=== PATIENT | female | born 1975 | race Caucasian/White ===

== ENCOUNTER → 2017-02-18 | Outpatient (CLI) | payer OTHER, BC ==
[~2017-02-18] MED LIST: ASPIRIN81 M2; BAYER CHEWABLE81 MG; CELEBREX; CIPRO PO; CLINORIL; DIFLUCAN PO; ESTRADIOL; ESTRADIOL0.5 MG; FLAGYL PO; IBUPROFEN800 MG PO; LINZESS290 MCG; METOPROLOL SUC100 MG; METOPROLOL SUCC25 MG PO; NEXIUM; PHENERGAN25 M1 PO; SENOKOT60 ML; VITAL-D RX TABL1 TAB; VITAMIN D2000 UNIT; ZINC10 M1; ZOFRAN; ZYRTEC; ZYRTEC10 M3
--- NOTE | ~2017-02-18 | CT57 ---
[facility] A Service of [facility] & [facility] RADIOLOGY TEXT RESULTS PATIENT: MUNDO WINTERS LOCATION: [facility] : 79 UNIT #: [id number] AGE: [address]: Cecile Peters APRN SEX: F ORDER DR: [id number] [address] [address] [id number] O MR#: [id number] Acc #: [id number] NAME: MUNDO WINTERS : 1975 SEX: F STUDY DATE/TIME: 02/18/2017 9:01 UNIT: [facility] ROOM: STUDY DESCRIPTION: CT Chest Wo Cont Attending Physician: Cecile Peters A.P.R.N. Referring Physician: Cecile Peters A.P.R.N. Ordering Physician: Cecile Peters A.P.R.N. Primary Care Physician: Cecile Peters A.P.R.N. MEDICAL IMAGING REPORT This report is preliminary unless electronic signature is present. EXAM CT chest without contrast DATE OF EXAMINATION 02/18/2017 HISTORY 41-year-old female with difficulty breathing. "Pulling" pain under the right arm. Shortness of breath occurs without or with exertion for the past 3 months. Treated for bronchitis but is no better. Additional history of reflux, epigastric bloating and belching for 3 months. Lupus. Irritable bowel syndrome. Diverticulosis. COMPARISON CTA chest PE protocol 02/11/2017. PROCEDURE 5 mm noncontrast axial images through the chest. Sagittal and coronal reformatted images were obtained. This CT exam was performed with one or more of the following radiation dose reduction techniques: automatic exposure control, adjustment of mA and/or kV according to patient size, and iterative reconstruction. FINDINGS No acute airspace disease is seen. There is minimal linear scarring in the lingula which is unchanged from prior. No abnormal bronchial wall thickening or bronchiectasis. No pericardial effusion. No pleural effusion. Heart size within normal limits. No pathologic adenopathy. Imaged portion of thyroid gland appears unremarkable. Thoracic aortic caliber appears within normal limits. Included portions of the upper abdominal organs have an unremarkable STS. [facility] A Service of [facility] & [facility] RADIOLOGY TEXT RESULTS PATIENT: MUNDO WINTERS LOCATION: [facility] : 79 UNIT #: [id number] AGE: [address]: Cecile Peters APRN SEX: F ORDER DR: noncontrast appearance. No acute or suspicious osseous abnormalities are identified. IMPRESSION Normal noncontrast CT chest. Dictated by... Vandana Carr M.D. THIS IS AN ELECTRONICALLY VERIFIED REPORT Vandana Carr M.D. at 02/20/2017 12:05 AM Denise TD: 02/18/2017 16:48 JOB #: [id number] MEDICAL IMAGING REPORT Page 1 of 1
--- NOTE | ~2017-02-18 | CT5 ---
[facility] A Service of [facility] & [facility] RADIOLOGY TEXT RESULTS PATIENT: MUNDO WINTERS LOCATION: [facility] : 79 UNIT #: [id number] AGE: [address]: Cecile Peters APRN SEX: F ORDER DR: [id number] [address] [address] [id number] O MR#: [id number] Acc #: [id number] NAME: MUNDO WINTERS : 1975 SEX: F STUDY DATE/TIME: 02/18/2017 9:05 UNIT: [facility] ROOM: STUDY DESCRIPTION: CT Abdomen W Cont Attending Physician: Cecile Peters A.P.R.N. Referring Physician: Cecile Peters A.P.R.N. Ordering Physician: Cecile Peters A.P.R.N. Primary Care Physician: Cecile Peters A.P.R.N. MEDICAL IMAGING REPORT This report is preliminary unless electronic signature is present. EXAM CT abdomen with contrast DATE 02/18/2017 HISTORY Complaints of shortness of breath, without and with exertion for 3 months. Treated for bronchitis, but no better. Also complains of epigastric bloating, belching and reflux for 3 months. Lupus. Diverticulosis. Irritable bowel syndrome. Appendectomy. Bilateral oopherectomy. COMPARISON CT abdomen and pelvis with contrast 04/11/2016. PROCEDURE 5 mm axial images from the lung bases to the iliac crests after IV and enteric contrast administration. Sagittal and coronal reformatted images were obtained. This CT exam was performed with one or more of the following radiation dose reduction techniques: automatic exposure control, adjustment of mA and/or kV according to patient size, and iterative reconstruction. FINDINGS The features of suspected pyelonephritis on the previous study appear resolved. Both kidneys demonstrate normal enhancement characteristics, and no hydronephrosis is seen. The liver, gallbladder, spleen, pancreas, adrenal glands are normal. The included portion of the bowel appears nonthickened, nondilated, noninflamed. Diverticular changes are seen within the imaged descending colon without CT evidence of acute diverticulitis. No pathologic adenopathy. No ascites. [facility] A Service of [facility] & [facility] RADIOLOGY TEXT RESULTS PATIENT: MUNDO WINTERS LOCATION: [facility] : 79 UNIT #: [id number] AGE: [address]: Cecile Peters APRN SEX: F ORDER DR: Appendix not visualized in keeping with history of appendectomy. IMPRESSION 1. No acute findings in the abdomen. 2. Uncomplicated colonic diverticulosis. 3. CT chest performed on this same day has been dictated separately. Dictated by... Vandana Carr M.D. THIS IS AN ELECTRONICALLY VERIFIED REPORT Vandana Carr M.D. at 02/20/2017 12:05 AM [facility]/keesha TD: 02/18/2017 16:52 JOB #: [id number] MEDICAL IMAGING REPORT Page 1 of 1
== END | disposition home or self-care (01) ==
LOC: SCT 08:24
DX: R06.02 Shortness of breath (principal); R05 Cough; R10.9 Unspecified abdominal pain; K57.30 Diverticulosis of large intestine without perforation or abscess without bleeding
CPT/HCPCS: 71250; 74160; Q9967

== ENCOUNTER → 2017-02-26 | Outpatient (CLI) | payer OTHER, BC ==
--- NOTE | ~2017-02-26 | MR32 ---
[facility] A Service of [facility] & [facility] RADIOLOGY TEXT RESULTS PATIENT: MUNDO WINTERS LOCATION: [facility] : 79 UNIT #: [id number] AGE: [address]: Cecile Peters APRN SEX: F ORDER DR: [id number] [address] [address] [id number] O MR#: [id number] Acc #: [id number] NAME: MUNDO WINTERS : 1975 SEX: F STUDY DATE/TIME: 02/26/2017 12:02 UNIT: [facility] ROOM: STUDY DESCRIPTION: MR Cervical Wo Contrast Attending Physician: Cecile Peters A.P.R.N. Ordering Physician: Cecile Peters A.P.R.N. Primary Care Physician: Cecile Peters A.P.R.N. MRI CENTER REPORT This report is preliminary unless electronic signature is present. EXAM Cervical spine MRI. No contrast. 02/26/2017 HISTORY Bilateral hand numbness, primarily in the 4th and 5th digits bilaterally. Symptoms for several years with additional complaint of neck pain for 4 months. FINDINGS There is a lower cervical reversal of lordosis centered at 6-7. There is no anterolisthesis or retrolisthesis. There are mild degenerative marrow signal changes, but no acute marrow edema and cord signal is normal. The posterior fossa and its contents are normal. At 2-3 the canal and foramina are normal. At 3-4 there is mild canal stenosis without cord compression and mild right and no left foraminal stenosis. At 4-5 there is mild canal stenosis without cord compression and mild right and no left foraminal stenosis. At 5-6 there is a disc and osteophyte complex with mild left sided cord compression and mild left and no right foraminal stenosis. There is no abnormal cord signal. At 6-7, there is moderate cord compression due to a left side predominant disc osteophyte complete. There is no abnormal cord signal but there is mild to moderate right and moderate to severe left foraminal stenosis. At 7-1 there is no canal stenosis and there is minimal right and mild left foraminal stenosis. [facility] A Service of [facility] & [facility] RADIOLOGY TEXT RESULTS PATIENT: MUNDO WINTERS LOCATION: [facility] : 79 UNIT #: [id number] AGE: [address]: Cecile Peters APRN SEX: F ORDER DR: IMPRESSION Mild cervical degenerative change with left side predominant cord compression at 5-6 and 6-7, symptoms more prominent at 6-7. No abnormal cord signal. See above for additional level by level details. Dictated by... Hudson Parada M.D. THIS IS AN ELECTRONICALLY VERIFIED REPORT Hudson Parada M.D. at 03/01/2017 10:32 AM ANDREW/aidan TD: 02/27/2017 14:30 JOB #: [id number] MRI CENTER REPORT Page 1 of 1
== END | disposition home or self-care (01) ==
LOC: SMRI 11:23
DX: R20.0 Anesthesia of skin (principal); R20.2 Paresthesia of skin; M47.892 Other spondylosis, cervical region; M48.02 Spinal stenosis, cervical region; M25.78 Osteophyte, vertebrae
CPT/HCPCS: 72141

== ENCOUNTER → 2017-03-08 | Outpatient (CLI) | payer OTHER, BC ==
--- NOTE | ~2017-03-08 | NM22 ---
[facility] A Service of [facility] & [facility] RADIOLOGY TEXT RESULTS PATIENT: MUNDO WINTERS LOCATION: [facility] : 79 UNIT #: [id number] AGE: [address]: DEISY ARELLANO APRN SEX: F ORDER DR: [id number] [facility] [address] [place], [place] [address] [id number] O MR#: [id number] Acc #: [id number] NAME: MUNDO WINTERS : 1975 SEX: F STUDY DATE/TIME: 03/08/2017 12:39 UNIT: [facility] ROOM: STUDY DESCRIPTION: NM Hepatobiliary W GB Pharm Attending Physician: Deisy Arellano Aprn Referring Physician: Deisy Arellano Aprn Ordering Physician: Deisy Arellano Aprn Primary Care Physician: Cecile Peters A.P.R.N. MEDICAL IMAGING REPORT This report is preliminary unless electronic signature is present EXAM Hepatobiliary study with gallbladder stimulation. INDICATION Abdominal pain, nausea and reflux x3 years. 7 pound weight gain over 3 months. FINDINGS The patient was given 5.7 mCi technetium 99m-Choletec and there is normal visualization of the gallbladder by 60 minutes. At 60 minutes the patient was given 1.9 mcg of Kinevac and 30 minute ejection fraction was 91%. The liver is visualized promptly as is the small bowel. IMPRESSION Normal study with ejection fraction of 91%. Dictated by... Candelario Nye M.D. THIS IS AN ELECTRONICALLY VERIFIED REPORT Candelario Nye M.D. at 03/09/2017 9:44 AM NIHARIKA/elijah TD: 03/08/2017 21:15 JOB #: [id number] MEDICAL IMAGING REPORT Page 1 of 1 COPY
== END | disposition home or self-care (01) ==
LOC: CNUC 07:42
DX: R10.13 Epigastric pain (principal); R10.12 Left upper quadrant pain
CPT/HCPCS: 78227; A9537; J2805

== ENCOUNTER → 2017-03-09 | Outpatient (CLI) | payer OTHER, BC ==
--- NOTE | ~2017-03-09 | US140 ---
[facility] A Service of [facility] & [facility] RADIOLOGY TEXT RESULTS PATIENT: MUNDO WINTERS LOCATION: [facility] : 79 UNIT #: [id number] AGE: [address]: Cecile Peters APRN SEX: F ORDER DR: [id number] [address] [address] [id number] O MR#: [id number] Acc #: [id number] NAME: MUNDO WINTERS : 1975 SEX: F STUDY DATE/TIME: 03/09/2017 16:04 UNIT: [facility] ROOM: STUDY DESCRIPTION: UE Veins Unilat or Ltd Stdy Attending Physician: Cecile Peters A.P.R.N. Referring Physician: Cecile Peters A.P.R.N. Ordering Physician: Cecile Peters A.P.R.N. Primary Care Physician: Cecile Peters A.P.R.N. MEDICAL IMAGING REPORT This report is preliminary unless electronic signature is present. EXAM Unilateral left upper extremity venous Doppler HISTORY Left upper extremity pain for 1 week with discoloration at IV site PROCEDURE Gallardo-scale imaging, color-Doppler flow imaging Doppler waveform analysis. FINDINGS There is no evidence of DVT. There is normal color flow and compressibility and/or respiratory phasicity or augmentation of the left internal jugular, subclavian, axillary and brachial veins. The cephalic vein is normal as is the proximal the basilic vein but there is occlusive thrombus in the basilic vein below the elbow. IMPRESSION Negative for DVT, positive for some occlusive thrombus in the superficial basilic vein below the elbow. Dictated by... Hudson Parada M.D. THIS IS AN ELECTRONICALLY VERIFIED REPORT Hudson Parada M.D. at 03/10/2017 1:20 PM TEV/rnr TD: 03/09/2017 18:11 JOB #: [id number] MEDICAL IMAGING REPORT Page 1 of 1
== END | disposition home or self-care (01) ==
LOC: SNIV 15:30
DX: I80.9 Phlebitis and thrombophlebitis of unspecified site (principal); I82.612 Acute embolism and thrombosis of superficial veins of left upper extremity
CPT/HCPCS: 93971

== ENCOUNTER → 2017-06-01 | Outpatient (CLI) | payer BC ==
--- NOTE | ~2017-06-01 | CR58 ---
[facility] A Service of [facility] & [facility] RADIOLOGY TEXT RESULTS PATIENT: MUNDO WINTERS LOCATION: [facility] : 79 UNIT #: [id number] AGE: [address]: JAVI HIGH APRN SEX: F ORDER DR: [id number] [address] [address] [id number] O MR#: [id number] Acc #: [id number] NAME: MUNOD WINTERS : 1975 SEX: F STUDY DATE/TIME: 06/01/2017 14:50 [facility] ROOM: STUDY DESCRIPTION: CR Cervical Spine 2 or 3 Views Attending Physician: Javi High A.P.R.N. Referring Physician: Javi High A.P.R.N. Ordering Physician: Javi High A.P.R.N. Primary Care Physician: Cecile Peters A.P.R.N. MEDICAL IMAGING REPORT This report is preliminary unless electronic signature is present. EXAM Cervical spine series 4 views, 06/01/2017. COMPARISON 11/05/2016. HISTORY Cervical spondylosis, status post fusion on May 21, 2017, followup, no new symptoms. FINDINGS There has been anterior fusion from C5-C7. Slight postoperative prevertebral swelling is seen as expected. No device loosening or failure. IMPRESSION Expected postoperative findings following anterior fusion from C5-C7. Dictated by... Hudson Parada M.D. THIS IS AN ELECTRONICALLY VERIFIED REPORT Hudson Parada M.D. at 06/02/2017 2:51 PM TEV/gz TD: 06/02/2017 12:17 JOB #: [id number] MEDICAL IMAGING REPORT Page 1 of 1
== END | disposition home or self-care (01) ==
LOC: SRAD 14:32
DX: M47.12 Other spondylosis with myelopathy, cervical region (principal); M47.22 Other spondylosis with radiculopathy, cervical region; Z98.1 Arthrodesis status
CPT/HCPCS: 72040